=== PATIENT | male | born 1940 | race Caucasian/White ===

== ENCOUNTER → 2019-12-20 | Outpatient (CLI) | payer OTHER ==
--- NOTE | 2019-12-20 15:00 | RAD ---
Examination: 1. Bilateral digital mammogram. 2. Targeted bilateral breast ultrasound INDICATION: 79-year-old man with bilateral breast lumps, left greater than right. COMPARISON: None. TECHNIQUE: Bilateral CC and MLO views were obtained. Computer-aided detection was utilized. Targeted ultrasound of the subareolar breasts was also performed. FINDINGS: Bilateral mammogram shows almost entirely fatty replaced breast tissue. Areas of palpable concern are marked with BBs and correlate with flame-shaped left greater than right bilateral subareolar densities. No suspicious calcifications, architectural distortion or discrete masses. These findings on mammogram are confirmed on targeted ultrasound of the retroareolar breasts with no suspicious sonographic findings seen. IMPRESSION: Benign gynecomastia, left greater than right. No evidence of malignancy. Recommend clinical management which may include biopsy of any clinically suspicious findings in the opinion of the patient's referring physician. BI-RADS Category 2 Benign
== END | disposition home or self-care (01) ==
LOC: MAMMO 13:48
PROVIDERS: ATTEND Physician Assistant Medical
DX: R92.2 Inconclusive mammogram (principal); N62 Hypertrophy of breast
CPT/HCPCS: 76641; 77066